=== PATIENT | male | born 1985 ===

== ENCOUNTER 2018-10-03 14:41 | Day surgery (SDC) | payer SELFPAY ==
[~2018-10-03] VITALS: Ht 170.2 cm; Wt 76.4 kg
[2018-10-03] MEDS ORDERED: IBUP600 (15:13)
--- NOTE | 2018-10-03 15:32 | NUR ---
10/03/18 1532 Paula Castañeda S SPLINT & DRESSING REMOVED BY DR. ALARCON. RIGHT HAND/FINGER SKIN INTACT BUT WITH MODERATE AMOUNT OF SWELLING. PT. VERBALIZES SHUTTING HIS HAND IN THE TRUCK DOOR.
== END 2018-10-03 17:20 | disposition home or self-care (01) ==
LOC: ORSCSDS 14:41
PROVIDERS: Orthopaedic Surgery
PROC: 0PSP34Z Reposition Right Metacarpal with Internal Fixation Device, Percutaneous Approach (ICD-10-PCS; principal; 2018-10-03 16:00)
DX: S62.336A Displaced fracture of neck of fifth metacarpal bone, right hand, initial encounter for closed fracture (principal)
CPT/HCPCS: J0690; J1100; J1885; J2250; J2405; J2704; J2765; J2795; J3010; J7120